=== PATIENT | male | born 1970 | race Caucasian/White ===

== ENCOUNTER 2016-07-07 14:38 | Emergency (ER) | payer SELFPAY ==
[~2016-07-07] VITALS: Ht 170.2 cm; Wt 120.2 kg
[2016-07-07 15:11] VITALS: BP 137/83
[2016-07-07] MEDS ORDERED: ATIVAN0.5 MG ORAL (15:17)
[2016-07-07] MEDS ORDERED: CLOZARIL100 MG ORAL (15:17)
[2016-07-07] MEDS ORDERED: CYMBALTA60 MG ORAL (15:17)
[2016-07-07 15:24] VITALS: BP 137/83
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
== END 2016-07-07 15:24 | disposition home or self-care (01) ==
LOC: EMR 15:05
DX: Z76.0 Encounter for issue of repeat prescription (principal); Z86.59 Personal history of other mental and behavioral disorders; E11.9 Type 2 diabetes mellitus without complications
CPT/HCPCS: 99284